=== PATIENT | male | born 1990 | race Caucasian/White ===

== ENCOUNTER 2017-07-26 14:01 | Day surgery (SDC) | payer BC, OTHER ==
[~2017-07-26] VITALS: Ht 182.9 cm; Wt 58.4 kg
[~2017-07-26 14:01] MED LIST: DIAZ-90; VIC
[2017-07-26 14:43] VITALS: Ht 182.9 cm; Wt 58.4 kg
[2017-07-26] MEDS ORDERED: FINESTERIDE (14:49)
[2017-07-26] MEDS ORDERED: FINA1TAB16 PO (14:49)
[2017-07-26 15:06] VITALS: BP 98/62; PULSE 46; RESP 16
[2017-07-26] MEDS ORDERED: MIDAZOLAM 1 MG/ML 2 ML INJ ONE ×3 (16:03)
--- NOTE | 2017-07-26 16:03 | OPPN ---
Date/Time of Note Date/Time of Note DATE: 07/26/17 TIME: 15:57 Proc Note GI Procedure Date 07/26/17 Pre-procedure Diagnosis * Unexplained weight loss * Dyspepsia Post-procedure Diagnosis Assessment: * Rule out eosinophilic esophagitis. Biopsies obtained * Mild distal esophagitis. * Moderate gastritis. Rule out H. pylori infection. Rule out bile reflux gastritis * Moderate duodenitis. * Rule out celiac disease Plan: * PPI plus Carafate * Review pathology * Consider colonoscopy, CT enterography and possibly capsule endoscopy Procedure Performed: Endoscopy (With biopsies) Surgeon FRANCIA WAGONER MD Roll Former none Anesthesia Type: moderate sedation (Versed 6 mg, fentanyl 100 mcg immunosuppression) Tourniquet Time none EBL none Transfusion required none Biopsy 1: Second portion of the duodenum. Rule out celiac disease Biopsy 2: Gastric body and antrum. Rule out H. pylori infection Biopsy 3: Midesophagus. Rule out eosinophilic esophagitis Grafts/Implants none Tubes/Drains none Complication(s) none Pt Condition post procedure: stable Disposition: home Indications: other (Weight loss/dyspepsia) Procedure Description After informed consent, with the patient/relatives understanding the procedure, its indications, potential risks and complications, including but not limited to : allergic reaction, bleeding, perforation or infection, and after all pertinent questions were answered to the patients satisfaction, the patient/ relatives signed witnessed informed consent. Following this, premedication was administered slowly IV push under careful cardiovascular and respiratory monitoring with pulse oximetry, automatic blood pressure, and monitor and storage bin tender. Once the sedative effect was achieved the patient was place in the left lateral decubitus, the panendoscope was introduced and advanced under visual control. Careful examination of the upper gastrointestinal tract, both on insertion as well as withdrawal of the instrument disclosing the following findings: ESOPHAGUS: the mucosa of the entire esophagus was carefully examined and showed the following findings: There is mild erythema and edema of the mucosa at the e.g. junction. Biopsies were obtained of the mid esophagus to rule out eosinophilic esophagitis as the patient complains of dysphagia. Otherwise the mucosa appears within normal limits. There is no evidence of varices, neoplasm, or stricture. No Hiatal Hernia identified. STOMACH: Upon entrance to the stomach air was insufflated, the gastric shen distended normally. The mucosa of the fundus, body and antrum of the stomach was carefully examined both head-on and on retroflexion, and showed the following findings: There is moderate erythema and edema of the mucosa of the entire stomach. A significant amount of bile was present and the mucosa appears stained with bile. Biopsies were obtained to rule out H. pylori infection. Otherwise the mucosa appears within normal limits with no abnormalities. There is no evidence of ulcers or neoplasm. PYLORUS: The pylorus was carefully examined and showed the following findings: the pylorus appears patent and within normal limits, with no evidence of gastric outlet obstruction. DUODENUM: The duodenal mucosa was carefully examined in the duodenal bulb as well as the second portion of the duodenum and showed the following findings: There is significant erythema and edema the mucosa in the duodenal bulb. No ulceration is present. Otherwise the mucosa appears unremarkable with no evidence of ulcer or neoplasm. Biopsies were obtained of the second portion of the duodenum to rule out celiac disease although the mucosa appears endoscopically unremarkable Copies To: CC: FRANCIA WAGONER MD, MORDO MD Jul 26, 2017 16:03
[2017-07-26] MEDS ORDERED: FENTAnyl 50 MCG/ML VIAL ONE (16:04)
== END 2017-07-26 16:23 | disposition home or self-care (01) ==
LOC: GIL 14:01
PROVIDERS: ATTEND Internal Medicine Gastroenterology
DX: K20.8 Other esophagitis (principal); K29.80 Duodenitis without bleeding; K29.60 Other gastritis without bleeding
CPT/HCPCS: 43239; 88305; 88312; J2250; J3010; Z7610; 88313